=== PATIENT | male | born 1950 | race Caucasian/White ===

== ENCOUNTER 2025-03-19 16:16 | Inpatient (IN) | payer OTHER, MEDICARE ==
[~2025-03-19] VITALS: Ht 172.7 cm; Wt 68.0 kg
[2025-03-19 16:19] VITALS: O2SAT 99
[2025-03-19 18:52] LABS: HEMATOCRIT. 33.1 % (42.0-52.0); HEMOGLOBIN. 11.6 g/dL (14.0-18.0); MEAN PLATELET VOLUME 9.4 fl (7.4-10.4); PLATELET 246 x1000/uL (130-400); RED BLOOD CELL COUNT 3.52 mill/uL (4.7-6.1); RED CELL DISTRIBUTION WIDTH 13.3 % (11.6-14.6)
[2025-03-19 19:18] LABS: CREATININE 0.5 mg/dL (0.6-1.3); UREA NITROGEN BLOOD 12 mg/dL (9-23)
[2025-03-19 19:20] LABS: ASPARTATE AMINOTRANSFERASE 22 IU/L (<34); BILIRUBIN DIRECT 0.7 mg/dL (<=3.0); BILIRUBIN TOTAL 1.9 mg/dL (0.1-1.0)
[2025-03-19 19:21] LABS: PROTEIN TOTAL 6.6 g/dL (6.0-8.3)
[2025-03-19 19:34] LABS: LYMPHOCYTES % MANUAL 8.0 % (20.0-50.0); MONOCYTES % MANUAL 6.0 % (2.0-8.0); NEUTROPHILS % MANUAL 86.0 % (45.0-75.0); PLATELET ESTIMATE NORMAL
[2025-03-19] MEDS: SODIUM CHLORIDE 0.9% 500 ML IV ONE (19:54)
[2025-03-19] MEDS: KCL 10MEQ/50ML PREMIX 50 ML IV ONE (19:54)
[2025-03-19 20:00] VITALS: BP 166/79; PULSE 70; RESP 20; TEMP 36.9; O2SAT 98
[2025-03-19] MEDS: MELATONIN 3MG TABLET PO SCH (20:24)
[2025-03-19 21:00] VITALS: BP 158/72; PULSE 78; RESP 18; TEMP 37.3076
[2025-03-19] MEDS ORDERED: MAGNESIUM/ALUMINUM HYDROXIDE/SIMETHICONE 30ML UDC PO PRN (21:45)
[2025-03-19] MEDS ORDERED: ONDANSETRON HCL 4MG/2ML INJ IV PRN (21:45)
[2025-03-19] MEDS ORDERED: NICARDIPINE 40MG/200ML PREMIX 200 ML IV PRN (21:45)
[2025-03-19] MEDS: SODIUM CHLORIDE 0.9% 1,000 ML IV SCH (23:50)
[2025-03-20] VITALS: BP 152/75; PULSE 72; RESP 18; TEMP 37.7; O2SAT 99
[2025-03-20 02:37] LABS: TROPONIN I HIGH SENSITIVITY 12 ng/L (3.0-53)
[2025-03-20 04:00] VITALS: BP 156/72; PULSE 71; RESP 18; TEMP 37.4; O2SAT 98
[2025-03-20 06:37] LABS: BASOPHILS % 0.4 % (0.0-2.0); EOSINOPHILS % 1.6 % (0.0-5.0); HEMATOCRIT. 34.1 % (42.0-52.0); HEMOGLOBIN. 11.9 g/dL (14.0-18.0); LYMPHOCYTES % 7.5 % (20.0-50.0); MEAN PLATELET VOLUME 9.7 fl (7.4-10.4); MONOCYTES % 13.5 % (2.0-8.0); NEUTROPHILS % 77.0 % (40.0-76.0); PLATELET 226 x1000/uL (130-400); RED BLOOD CELL COUNT 3.58 mill/uL (4.7-6.1); RED CELL DISTRIBUTION WIDTH 13.2 % (11.6-14.6)
[2025-03-20 06:52] LABS: TROPONIN I HIGH SENSITIVITY 11 ng/L (3.0-53)
[2025-03-20 06:55] LABS: CREATININE 0.6 mg/dL (0.6-1.3); UREA NITROGEN BLOOD 11 mg/dL (9-23)
[2025-03-20 08:00] VITALS: BP 156/83; PULSE 68; RESP 16; TEMP 36.7; O2SAT 97
[2025-03-20] MEDS: PANTOPRAZOLE SODIUM 40 MG/VIAL IV SCH (10:35)
[2025-03-20] MEDS: LOSARTAN 25 MG TABLET PO SCH (10:36)
[2025-03-20] MEDS: AMLODIPINE 5MG TABLET PO SCH (10:37)
[2025-03-20] MEDS: LEVETIRACETAM 500MG PREMIX 100 ML IV SCH (10:48)
[2025-03-20 12:00] VITALS: BP 156/83; PULSE 68; RESP 16; TEMP 36.7; O2SAT 97
[2025-03-20 16:00] VITALS: BP 159/80; PULSE 68; RESP 16; TEMP 36.9; O2SAT 98
[2025-03-20] MEDS: HYDROCODONE/ACETAMINOPHEN 5/325MG TABLET PO PRN (18:31)
[2025-03-20 20:00] VITALS: BP_SYST 163; BP_DIAS 81; BP_DIAS 82; PULSE 73; RESP 18; TEMP 36.1; O2SAT 98
[2025-03-20] MEDS: ZOLPIDEM TARTRATE 5MG TABLET PO PRN (21:59)
[2025-03-20] MEDS: ACETAMINOPHEN 325MG TABLET PO PRN (22:02)
[2025-03-21] VITALS: BP 153/78; PULSE 69; RESP 18; TEMP 35.7; O2SAT 99
[2025-03-21 04:00] VITALS: BP_SYST 147; BP_SYST 154; BP_DIAS 70; BP_DIAS 83; PULSE 71; PULSE 83; RESP 17; TEMP 36; TEMP 36.1; O2SAT 100; O2SAT 99
[2025-03-21 08:00] VITALS: BP 158/76; PULSE 77; RESP 16; TEMP 36.7; O2SAT 99
[2025-03-21 08:04] LABS: HEMATOCRIT. 36.2 % (42.0-52.0); HEMOGLOBIN. 12.0 g/dL (14.0-18.0); MEAN PLATELET VOLUME 9.0 fl (7.4-10.4); PLATELET 239 x1000/uL (130-400); RED BLOOD CELL COUNT 3.63 mill/uL (4.7-6.1); RED CELL DISTRIBUTION WIDTH 13.2 % (11.6-14.6)
[2025-03-21 08:24] LABS: CREATININE 0.5 mg/dL (0.6-1.3); UREA NITROGEN BLOOD 6 mg/dL (9-23)
[2025-03-21] MEDS ORDERED: NALOXONE HCL 0.4MG/ML VIAL IV PRN (11:00)
[2025-03-21 12:00] VITALS: BP 134/67; PULSE 85; RESP 18; TEMP 36.4; O2SAT 99
[2025-03-21 16:00] VITALS: BP 141/75; PULSE 76; RESP 16; TEMP 36.6; O2SAT 99
[2025-03-21 17:50] LABS: BAND% 1.0 % (1.0-6.0); EOSINOPHILS % MANUAL 4.0 % (0.0-5.0); LYMPHOCYTES % MANUAL 4.0 % (20.0-50.0); MONOCYTES % MANUAL 12.0 % (2.0-8.0); NEUTROPHILS % MANUAL 79.0 % (45.0-75.0); PLATELET ESTIMATE NORMAL
[2025-03-21] MEDS ORDERED: CLONIDINE 0.1MG TABLET PO PRN (19:30)
[2025-03-22] VITALS: BP 144/67; PULSE 70; RESP 16; TEMP 36.9; O2SAT 99
[2025-03-22 04:00] VITALS: BP 141/78; PULSE 64; RESP 17; TEMP 36.8; O2SAT 98
[2025-03-22 08:00] VITALS: BP 146/73; PULSE 64; RESP 18; TEMP 36.6; O2SAT 99
[2025-03-22 09:43] LABS: CLARITY URINE CLEAR (CLEAR); COLOR URINE DARK YELLOW (YELLOW); PROTEIN URINE NEGATIVE (NEGATIVE); SPECIFIC GRAVITY URINE 1.012 (1.005-1.030)
[2025-03-22 09:44] LABS: GLUCOSE URINE NEGATIVE (NEGATIVE); KETONES URINE NEGATIVE (NEGATIVE); LEUKOCYTE ESTERASE URINE NEGATIVE (NEGATIVE); NITRITE URINE NEGATIVE (NEGATIVE); OCCULT BLOOD URINE NEGATIVE (NEGATIVE); PH URINE 6.0 (4.5-8.0); UROBILINOGEN URINE 4.0 E.U./dL (0.2-1.0)
[2025-03-22] MEDS: TAMSULOSIN HCL 0.4MG SR CAPSULE PO SCH (09:46)
[2025-03-22] MEDS: LOSARTAN 50 MG TABLET PO SCH (09:47)
[2025-03-22 10:19] LABS: RBC URINE 0-2 /hpf (0-2); WBC URINE 0-2 /hpf (0-2)
[2025-03-22 10:20] LABS: MUCUS URINE TRACE /lpf (NONE/TRACE); SODIUM URINE RANDOM 70 mEq/L
[2025-03-22 10:28] LABS: BACTERIA URINE NONE SEEN; SQUAMOUS EPITHELIAL CELL URINE NONE SEEN /lpf (RARE/1+)
[2025-03-22 12:00] VITALS: BP 137/73; PULSE 75; RESP 18; TEMP 36.5; O2SAT 98
[2025-03-22] MEDS: POTASSIUM CHLORIDE 20MEQ TABLET SR PO NR (12:50)
[2025-03-22] MEDS ORDERED: AMLO5TAB88 PO (13:18)
[2025-03-22] MEDS ORDERED: LOSA50TA41 PO (13:18)
[2025-03-22] MEDS ORDERED: TAMS-54 PO (13:18)
[2025-03-22 14:44] LABS: OSMOLALITY URINE 376 mOsm/kg (500-850)
[2025-03-22 16:00] VITALS: BP 145/74; PULSE 77; RESP 18; TEMP 36.3; O2SAT 99
[2025-03-22 20:26] VITALS: TEMP 97.4
[2025-03-22] MEDS ORDERED: LACTULOSE 20G/30ML UDC PO SCH (21:00)
== END 2025-03-22 20:36 | DRG 83 ==
LOC: ER 16:16 → EDBEDREQ 19:41 → EDBEDREQTM 19:41 → ENRESERV 19:57 → 5WST 22:20
PROVIDERS: ADMIT Internal Medicine; ATTEND Internal Medicine
DX: S06.5XAA Traumatic subdural hemorrhage with loss of consciousness status unknown, initial encounter (principal); E87.1 Hypo-osmolality and hyponatremia; I16.0 Hypertensive urgency; S06.6XAA Traumatic subarachnoid hemorrhage with loss of consciousness status unknown, initial encounter; I10 Essential (primary) hypertension; D64.9 Anemia, unspecified; V03.10XA Pedestrian on foot injured in collision with car, pick-up truck or van in traffic accident, initial encounter; Y93.89 Activity, other specified; Y92.89 Other specified places as the place of occurrence of the external cause; Y99.8 Other external cause status
CPT/HCPCS: 36415; 71045; 80048; 80076; 81003; 83735; 83930; 83935; 84300; 84443; 84484; 85025; 93005; 93970; 96365; 97162; 99285; A4606; J1953; J2470; J3480; J7040

== ENCOUNTER 2025-03-26 08:00 | Inpatient (IN) | payer OTHER, MEDICARE ==
[~2025-03-26] VITALS: Ht 172.7 cm; Wt 71.7 kg
[2025-03-26] VITALS (61 sets, daily range): BP systolic 62–172; BP diastolic 51–95; PULSE 75–113; RESP 16–34; TEMP 36.6–36.8; O2SAT 0–100
[~2025-03-26 08:00] MED LIST: AMLO5TAB88 PO; LOSA50TA41 PO; TAMS-54 PO
[2025-03-26] MEDS ORDERED: NOREPINEPHRINE 8MG/250ML PMX 250 ML IV PRN (08:30)
[2025-03-26] MEDS ORDERED: FENTANYL 2500MCG/250ML PMX 250 ML IV PRN (09:00)
[2025-03-26] MEDS: PROPOFOL 10MG/ML 100ML 100 ML IV PRN (09:44)
[2025-03-26] MEDS: LEVETIRACETAM 1000MG PREMIX 100 ML IV SCH ×2 (09:44→21:53)
[2025-03-26] MEDS ORDERED: BACITRACIN 14GM TUBE TOP ONE (10:14)
[2025-03-26] MEDS ORDERED: THROMBIN (BOVINE) 5000 UNITS/VIAL TOP ONE ×2 (10:14→12:56)
[2025-03-26] MEDS ORDERED: GENTAMICIN SULF 40MG/ML 2ML VIAL ONE (10:15)
[2025-03-26] MEDS ORDERED: LIDOCAINE HCL/EPINEPHRINE 1%-EPI 1:100,000 20ML VIAL ONE (10:15)
[2025-03-26] MEDS ORDERED: FENTANYL CITRATE/PF 50MCG/ML 5ML VIAL ONE (10:32)
[2025-03-26] MEDS ORDERED: PROPOFOL 200MG/20ML VIAL IV ONE (11:16)
[2025-03-26 11:26] LABS: BG BASE EXCESS -4.6 mmol/L (-2.0-3.0); BG CARBOXYHEMOGLOBIN 0.9 % (0.5-1.5); BG DEOXYHEMOGLOBIN 3.7 % (0.0-5.0); BG FRACTION INSPIRED OXYGEN 100; BG HCO3 ACT 20.4 mmol/L (21.0-28.0); BG METHEMOGLOBIN 0.3 % (0.5-1.5); BG OXYGEN SATURATION 96.3 % (94.0-98.0); BG OXYHEMOGLOBIN 95.1 % (94.0-98.0); BG PCO2 37.7 mmHg (35.0-48.0); BG PH 7.352 (7.350-7.450); BG PO2 83.2 mmHg (83.0-108.0); BG SAMPLE SITE ALINE; BG TOTAL HEMOGLOBIN 13.2 g/dL (13.5-17.5)
[2025-03-26] MEDS ORDERED: NALOXONE HCL 0.4MG/ML VIAL IV PRN (12:00)
[2025-03-26 12:37] LABS: INR 1.2
[2025-03-26 12:46] LABS: CREATININE 1.2 mg/dL (0.6-1.3); UREA NITROGEN BLOOD 20 mg/dL (9-23)
[2025-03-26 12:48] LABS: PHOSPHORUS 5.4 mg/dL (2.5-4.9)
[2025-03-26 13:03] LABS: HEMATOCRIT. 34.9 % (42.0-52.0); HEMOGLOBIN. 12.1 g/dL (14.0-18.0); MEAN PLATELET VOLUME 9.2 fl (7.4-10.4); PLATELET 365 x1000/uL (130-400); RED BLOOD CELL COUNT 3.73 mill/uL (4.7-6.1); RED CELL DISTRIBUTION WIDTH 13.2 % (11.6-14.6)
[2025-03-26] MEDS: DEXT 5%/LACTATED RINGERS 1,000 ML IV SCH (13:05)
[2025-03-26] MEDS: NOREPINEPHRINE 8MG/250ML PMX 250ML IV PRN (13:37)
[2025-03-26] MEDS: CEFAZOLIN 1000MG PREMIX 50ML IV SCH (13:37)
[2025-03-26] MEDS ORDERED: CEFAZOLIN SODIUM 1000MG/VIAL IV SCH (14:00)
[2025-03-26 14:51] LABS: BAND% 17.0 % (1.0-6.0); EOSINOPHILS % MANUAL 1.0 % (0.0-5.0); LYMPHOCYTES % MANUAL 3.0 % (20.0-50.0); MONOCYTES % MANUAL 6.0 % (2.0-8.0); NEUTROPHILS % MANUAL 73.0 % (45.0-75.0)
[2025-03-26 14:54] LABS: PLATELET ESTIMATE NORMAL
[2025-03-26] MEDS: PANTOPRAZOLE SODIUM 40 MG/VIAL IV SCH (15:27)
[2025-03-26] MEDS: LACTATED RINGERS 1,000 ML IV SCH (15:56)
[2025-03-26] MEDS: KCL 20MEQ/100ML PREMIX 100 ML IV SCH (16:01)
[2025-03-26] MEDS: MAGNESIUM 4 G PREMIX 100 ML IV SCH (17:39)
[2025-03-26] MEDS: AZITHROMYCIN 500MG/250ML 250 ML IV SCH (19:41)
[2025-03-27] VITALS (99 sets, daily range): BP systolic 89–157; BP diastolic 57–84; PULSE 72–88; RESP 14–48; TEMP 36.6–37.2; O2SAT 94–100
[2025-03-27] MEDS: VASOPRESSIN 20 UNIT in SODIUM CHLORIDE 0.9% 99 ML IV PRN (00:02)
[2025-03-27 07:35] LABS: HEMATOCRIT. 28.9 % (42.0-52.0); HEMOGLOBIN. 10.0 g/dL (14.0-18.0); MEAN PLATELET VOLUME 9.9 fl (7.4-10.4); PLATELET 318 x1000/uL (130-400); RED BLOOD CELL COUNT 3.07 mill/uL (4.7-6.1); RED CELL DISTRIBUTION WIDTH 13.1 % (11.6-14.6)
[2025-03-27 07:43] LABS: CREATININE 1.0 mg/dL (0.6-1.3); TRIGLYCERIDE 92 mg/dL (0-150); UREA NITROGEN BLOOD 23 mg/dL (9-23)
[2025-03-27] MEDS ORDERED: DEXTROSE 50% WATER 50ML SYRINGE IV PRN (08:30)
[2025-03-27 08:54] LABS: BG BASE EXCESS -1.9 mmol/L (-2.0-3.0); BG CARBOXYHEMOGLOBIN 0.0 % (0.5-1.5); BG DEOXYHEMOGLOBIN 0.6 % (0.0-5.0); BG FRACTION INSPIRED OXYGEN 50; BG HCO3 ACT 19.6 mmol/L (21.0-28.0); BG METHEMOGLOBIN 0.3 % (0.5-1.5); BG OXYGEN SATURATION 99.4 % (94.0-98.0); BG OXYHEMOGLOBIN 99.1 % (94.0-98.0); BG PCO2 24.1 mmHg (35.0-48.0); BG PEEP (cmH2O) 5.0 cmH2O; BG PH 7.529 (7.350-7.450); BG PO2 142.5 mmHg (83.0-108.0); BG SAMPLE SITE ALINE; BG TIDAL VOLUME(mL) 450.0 mL; BG TOTAL HEMOGLOBIN 10.4 g/dL (13.5-17.5); BG VENT MODE VENT - AC; BG VENT RATE 16.0 set
[2025-03-27] MEDS ORDERED: PANTOPRAZOLE SODIUM 40 MG/VIAL IV SCH (09:00)
[2025-03-27] MEDS ORDERED: LIDOCAINE HCL 1% 10 MG/ML 10ML VIAL ONE (09:36)
[2025-03-27 11:09] LABS: ASPARTATE AMINOTRANSFERASE 23 IU/L (<34); BILIRUBIN DIRECT 1.5 mg/dL (<=3.0); BILIRUBIN TOTAL 2.5 mg/dL (0.1-1.0); PHOSPHORUS 2.6 mg/dL (2.5-4.9); PROTEIN TOTAL 6.0 g/dL (6.0-8.3)
[2025-03-27] MEDS: SODIUM CHLORIDE 3% 500 ML IV NR (11:23)
[2025-03-27 11:39] LABS: TRIGLYCERIDE 93.0 mg/dL (0-150)
[2025-03-27 11:40] LABS: LDL CHOLESTEROL 60.0 mg/dL (5-100)
[2025-03-27 11:44] LABS: T4 FREE 1.55 ng/dL (0.89-1.76)
[2025-03-27] MEDS: CEFTRIAXONE 1GM/50ML 50ML IV SCH (15:08)
[2025-03-27 15:10] LABS: LYMPHOCYTES % MANUAL 2.0 % (20.0-50.0); MONOCYTES % MANUAL 5.0 % (2.0-8.0); NEUTROPHILS % MANUAL 93.0 % (45.0-75.0); PLATELET ESTIMATE NORMAL
[2025-03-27 16:24] LABS: CLARITY URINE CLOUDY (CLEAR); COLOR URINE DARK YELLOW (YELLOW); GLUCOSE URINE NEGATIVE (NEGATIVE); KETONES URINE NEGATIVE (NEGATIVE); LEUKOCYTE ESTERASE URINE 1+ (NEGATIVE); NITRITE URINE POSITIVE (NEGATIVE); OCCULT BLOOD URINE 3+ (NEGATIVE); PH URINE 5.0 (4.5-8.0); PROTEIN URINE 1+ (NEGATIVE); SPECIFIC GRAVITY URINE 1.023 (1.005-1.030); UROBILINOGEN URINE 2.0 E.U./dL (0.2-1.0)
[2025-03-27 17:05] LABS: RBC URINE 25-50 /hpf (0-2); SQUAMOUS EPITHELIAL CELL URINE FEW /lpf (RARE/1+)
[2025-03-27 17:07] LABS: BACTERIA URINE 3+
[2025-03-27] MEDS: IPRATROPIUM/ALBUTEROL 0.5-3(2.5)MG/3ML NEB HHN SCH (19:54)
[2025-03-28] VITALS (106 sets, daily range): BP systolic 124–172; BP diastolic 52–81; PULSE 70–103; RESP 11–32; TEMP 36.6–37.3; O2SAT 83–100
[2025-03-28] MEDS: BLOOD SUGAR DIAGNOSTIC STRIP TEST SCH
[2025-03-28 06:05] LABS: CREATININE 0.6 mg/dL (0.6-1.3); UREA NITROGEN BLOOD 17 mg/dL (9-23)
[2025-03-28] MEDS ORDERED: KCL 20MEQ/100ML PREMIX 100 ML IV NR (07:30)
[2025-03-28] MEDS: KCL 20MEQ/100ML PREMIX 100 ML IV NR (09:44)
[2025-03-28] MEDS: FAMOTIDINE 20MG/2ML VIAL IV SCH (09:44)
[2025-03-28 10:20] LABS: BG BASE EXCESS -0.9 mmol/L (-2.0-3.0); BG CARBOXYHEMOGLOBIN 0.9 % (0.5-1.5); BG DEOXYHEMOGLOBIN 1.2 % (0.0-5.0); BG FRACTION INSPIRED OXYGEN 40; BG HCO3 ACT 21.5 mmol/L (21.0-28.0); BG METHEMOGLOBIN 0.3 % (0.5-1.5); BG OXYGEN SATURATION 98.8 % (94.0-98.0); BG OXYHEMOGLOBIN 97.6 % (94.0-98.0); BG PCO2 27.8 mmHg (35.0-48.0); BG PEEP (cmH2O) 5.0 cmH2O; BG PH 7.507 (7.350-7.450); BG PIP 10.0 cmH2O; BG PO2 107.4 mmHg (83.0-108.0); BG SAMPLE SITE ALINE; BG TOTAL HEMOGLOBIN 9.1 g/dL (13.5-17.5); BG VENT RATE 8.0 set
[2025-03-28 11:50] LABS: PLATELET 320 x1000/uL (130-400); RED BLOOD CELL COUNT 2.71 mill/uL (4.7-6.1); RED CELL DISTRIBUTION WIDTH 13.5 % (11.6-14.6)
[2025-03-28] MEDS: NICARDIPINE 100 MG in SODIUM CHLORIDE 0.9% 60 ML IV PRN (14:23)
[2025-03-28] MEDS: AMLODIPINE 5MG TABLET NG SCH (17:19)
[2025-03-29] VITALS (100 sets, daily range): BP systolic 99–149; BP diastolic 49–107; PULSE 67–86; RESP 13–26; TEMP 36.7–36.9; O2SAT 80–100
[2025-03-29 08:40] LABS: BG BASE EXCESS 0.8 mmol/L (-2.0-3.0); BG CARBOXYHEMOGLOBIN 0.3 % (0.5-1.5); BG DEOXYHEMOGLOBIN 1.7 % (0.0-5.0); BG FRACTION INSPIRED OXYGEN 40; BG HCO3 ACT 23.5 mmol/L (21.0-28.0); BG METHEMOGLOBIN 0.3 % (0.5-1.5); BG OXYGEN SATURATION 98.3 % (94.0-98.0); BG OXYHEMOGLOBIN 97.7 % (94.0-98.0); BG PCO2 30.5 mmHg (35.0-48.0); BG PEEP (cmH2O) 5.0 cmH2O; BG PH 7.505 (7.350-7.450); BG PO2 102.8 mmHg (83.0-108.0); BG SAMPLE SITE ALINE; BG TIDAL VOLUME(mL) 350.0 mL; BG TOTAL HEMOGLOBIN 9.3 g/dL (13.5-17.5); BG TOTAL RESPIRATORY RATE 19 b/min; BG VENT MODE VENT - SIMV; BG VENT RATE 8.0 set
[2025-03-29] MEDS: MORPHINE SULFATE 4 MG/ML INJ (FOR IV/IM USE) IV PRN (16:12)
[2025-03-29 18:35] LABS: PLATELET 275 x1000/uL (130-400); RED BLOOD CELL COUNT 2.63 mill/uL (4.7-6.1); RED CELL DISTRIBUTION WIDTH 13.2 % (11.6-14.6)
[2025-03-29 18:55] LABS: CREATININE 0.5 mg/dL (0.6-1.3); UREA NITROGEN BLOOD 10 mg/dL (9-23)
[2025-03-29 18:57] LABS: ASPARTATE AMINOTRANSFERASE 18 IU/L (<34); BILIRUBIN TOTAL 1.1 mg/dL (0.1-1.0); PROTEIN TOTAL 5.9 g/dL (6.0-8.3)
[2025-03-29] MEDS: BLOOD SUGAR DIAGNOSTIC STRIP TEST SCH (21:44)
[2025-03-30] VITALS (101 sets, daily range): BP systolic 101–156; BP diastolic 52–129; PULSE 70–98; RESP 13–26; TEMP 36.7; O2SAT 97–100
[2025-03-30] MEDS: HYDRALAZINE 20MG/ML VIAL IV PRN
[2025-03-30 06:39] LABS: PLATELET 296 x1000/uL (130-400); RED BLOOD CELL COUNT 2.71 mill/uL (4.7-6.1); RED CELL DISTRIBUTION WIDTH 13.4 % (11.6-14.6)
[2025-03-30 07:12] LABS: CREATININE 0.4 mg/dL (0.6-1.3); UREA NITROGEN BLOOD 10 mg/dL (9-23)
[2025-03-30] MEDS: KCL 20MEQ/100ML PREMIX 100 ML IV SCH (10:02)
[2025-03-30] MEDS: MULTIVITAMINS,THER W-MINERALS TABLET PO SCH (10:03)
[2025-03-30 10:23] LABS: BG BASE EXCESS 5.3 mmol/L (-2.0-3.0); BG CARBOXYHEMOGLOBIN 0.9 % (0.5-1.5); BG DEOXYHEMOGLOBIN 0.6 % (0.0-5.0); BG FRACTION INSPIRED OXYGEN 40; BG HCO3 ACT 28.6 mmol/L (21.0-28.0); BG METHEMOGLOBIN 0.3 % (0.5-1.5); BG OXYGEN SATURATION 99.4 % (94.0-98.0); BG OXYHEMOGLOBIN 98.2 % (94.0-98.0); BG PCO2 36.7 mmHg (35.0-48.0); BG PEEP (cmH2O) 5.0 cmH2O; BG PH 7.510 (7.350-7.450); BG PO2 152.2 mmHg (83.0-108.0); BG SAMPLE SITE ALINE; BG TIDAL VOLUME(mL) 350.0 mL; BG TOTAL HEMOGLOBIN 9.2 g/dL (13.5-17.5); BG VENT MODE VENT - SIMV; BG VENT RATE 8.0 set
[2025-03-30 16:56] LABS: BG BASE EXCESS 3.8 mmol/L (-2.0-3.0); BG CARBOXYHEMOGLOBIN 0.3 % (0.5-1.5); BG DEOXYHEMOGLOBIN 1.0 % (0.0-5.0); BG FRACTION INSPIRED OXYGEN 40; BG HCO3 ACT 26.7 mmol/L (21.0-28.0); BG METHEMOGLOBIN 0.3 % (0.5-1.5); BG OXYGEN SATURATION 99.0 % (94.0-98.0); BG OXYHEMOGLOBIN 98.4 % (94.0-98.0); BG PCO2 34.1 mmHg (35.0-48.0); BG PEEP (cmH2O) 5.0 cmH2O; BG PH 7.512 (7.350-7.450); BG PO2 135.9 mmHg (83.0-108.0); BG SAMPLE SITE ALINE; BG TOTAL HEMOGLOBIN 10.4 g/dL (13.5-17.5); BG VENT MODE VENT - CPAP
[2025-03-30] MEDS ORDERED: NICARDIPINE 100 MG in SODIUM CHLORIDE 0.9% 60 ML IV PRN (20:00)
[2025-03-31] VITALS (75 sets, daily range): BP systolic 109–172; BP diastolic 55–95; PULSE 85–117; RESP 13–29; TEMP 36.7–37.2; O2SAT 91–100
[2025-03-31 05:32] LABS: PLATELET 305 x1000/uL (130-400); RED BLOOD CELL COUNT 3.04 mill/uL (4.7-6.1); RED CELL DISTRIBUTION WIDTH 13.6 % (11.6-14.6)
[2025-03-31 06:07] LABS: CREATININE 0.4 mg/dL (0.6-1.3)
[2025-03-31 06:08] LABS: UREA NITROGEN BLOOD 8 mg/dL (9-23)
[2025-03-31] MEDS ORDERED: KCL 20MEQ/100ML PREMIX 100 ML IV SCH (08:30)
[2025-03-31] MEDS: KCL 20MEQ/100ML PREMIX 100 ML IV SCH (11:21)
[2025-03-31] MEDS ORDERED: MORPHINE SULFATE 4 MG/ML INJ (FOR IV/IM USE) IV PRN (17:30)
[2025-03-31] MEDS ORDERED: NALOXONE HCL 0.4MG/ML VIAL IV PRN (17:45)
[2025-04-01] VITALS (10 sets, daily range): BP systolic 106–152; BP diastolic 68–85; PULSE 89–112; RESP 16–20; TEMP 36.1–37.1; O2SAT 95–99
[2025-04-01 07:12] LABS: HEMATOCRIT. 30.1 % (42.0-52.0); HEMOGLOBIN. 10.2 g/dL (14.0-18.0); MEAN PLATELET VOLUME 9.8 fl (7.4-10.4); PLATELET 340 x1000/uL (130-400); RED BLOOD CELL COUNT 3.20 mill/uL (4.7-6.1); RED CELL DISTRIBUTION WIDTH 13.3 % (11.6-14.6)
[2025-04-01 07:24] LABS: CREATININE 0.5 mg/dL (0.6-1.3)
[2025-04-01 07:25] LABS: UREA NITROGEN BLOOD 10 mg/dL (9-23)
[2025-04-01 07:27] LABS: PHOSPHORUS 4.3 mg/dL (2.5-4.9)
[2025-04-01 17:00] LABS: EOSINOPHILS % MANUAL 6.0 % (0.0-5.0); LYMPHOCYTES % MANUAL 6.0 % (20.0-50.0); MONOCYTES % MANUAL 14.0 % (2.0-8.0); NEUTROPHILS % MANUAL 74.0 % (45.0-75.0); PLATELET ESTIMATE NORMAL
[2025-04-01] MEDS: HYDRALAZINE HCL 50MG TABLET PO SCH (21:46)
[2025-04-02] VITALS: BP 150/81; PULSE 100; RESP 21; TEMP 36.3; O2SAT 98
[2025-04-02 04:00] VITALS: BP 145/85; PULSE 99; RESP 21; TEMP 37.4; O2SAT 98
[2025-04-02 08:00] VITALS: BP 146/80; PULSE 94; RESP 18; TEMP 37.3; O2SAT 96
[2025-04-02] MEDS: AMLODIPINE 5MG TABLET NG SCH (08:56)
[2025-04-02 12:00] VITALS: BP 116/68; PULSE 94; RESP 20; TEMP 36.4; O2SAT 95
[2025-04-02 16:00] VITALS: BP 110/59; PULSE 99; RESP 20; TEMP 37.2; O2SAT 96
[2025-04-02 20:00] VITALS: BP 112/72; PULSE 66; RESP 18; TEMP 36.2; O2SAT 97
[2025-04-02] MEDS: HYDRALAZINE HCL 100MG TABLET PO SCH (21:46)
[2025-04-03] VITALS: BP 131/77; PULSE 96; RESP 18; TEMP 36.8; O2SAT 97
[2025-04-03 08:00] VITALS: BP 109/60; PULSE 93; RESP 20; TEMP 37.4; O2SAT 96
[2025-04-03 12:00] VITALS: BP 144/72; PULSE 90; RESP 20; TEMP 36.8; O2SAT 97
[2025-04-03 16:00] VITALS: BP 110/61; PULSE 94; RESP 18; TEMP 37.4; O2SAT 96
[2025-04-03 16:17] LABS: HEMATOCRIT. 33.3 % (42.0-52.0); HEMOGLOBIN. 10.9 g/dL (14.0-18.0); MEAN PLATELET VOLUME 9.9 fl (7.4-10.4); PLATELET 352 x1000/uL (130-400); RED BLOOD CELL COUNT 3.46 mill/uL (4.7-6.1); RED CELL DISTRIBUTION WIDTH 13.8 % (11.6-14.6)
[2025-04-03 16:32] LABS: CREATININE 0.5 mg/dL (0.6-1.3); UREA NITROGEN BLOOD 14 mg/dL (9-23)
[2025-04-03 16:46] LABS: EOSINOPHILS % MANUAL 2.0 % (0.0-5.0); LYMPHOCYTES % MANUAL 10.0 % (20.0-50.0); MONOCYTES % MANUAL 16.0 % (2.0-8.0); NEUTROPHILS % MANUAL 72.0 % (45.0-75.0); PLATELET ESTIMATE NORMAL
[2025-04-03 20:00] VITALS: BP 142/79; PULSE 91; RESP 19; TEMP 36.1; O2SAT 98
[2025-04-04] VITALS: BP 153/87; PULSE 105; RESP 19; TEMP 36.6; O2SAT 98
[2025-04-04 04:00] VITALS: BP 150/83; PULSE 98; RESP 19; TEMP 36.7; O2SAT 95
[2025-04-04 08:00] VITALS: BP 132/65; PULSE 79; RESP 20; TEMP 36.6; O2SAT 99
[2025-04-04] MEDS: CARVEDILOL 6.25 MG TABLET PO SCH (09:37)
[2025-04-04 12:00] VITALS: BP 120/70; PULSE 89; RESP 20; TEMP 36.4; O2SAT 97
[2025-04-04 12:32] LABS: HEMATOCRIT. 32.0 % (42.0-52.0); HEMOGLOBIN. 10.8 g/dL (14.0-18.0); MEAN PLATELET VOLUME 9.7 fl (7.4-10.4); PLATELET 309 x1000/uL (130-400); RED BLOOD CELL COUNT 3.33 mill/uL (4.7-6.1); RED CELL DISTRIBUTION WIDTH 13.7 % (11.6-14.6)
[2025-04-04 12:41] LABS: CREATININE 0.5 mg/dL (0.6-1.3); UREA NITROGEN BLOOD 13 mg/dL (9-23)
[2025-04-04 17:16] LABS: EOSINOPHILS % MANUAL 5.0 % (0.0-5.0); LYMPHOCYTES % MANUAL 2.0 % (20.0-50.0); MONOCYTES % MANUAL 9.0 % (2.0-8.0); NEUTROPHILS % MANUAL 84.0 % (45.0-75.0); PLATELET ESTIMATE NORMAL
[2025-04-04 20:00] VITALS: BP 128/76; PULSE 83; RESP 18; TEMP 36.5; O2SAT 95
[2025-04-05] VITALS: BP 121/77; PULSE 75; RESP 18; TEMP 36.1; O2SAT 94
[2025-04-05 04:00] VITALS: BP 145/78; PULSE 67; RESP 20; TEMP 36.7; O2SAT 100
[2025-04-05 08:00] VITALS: BP 143/71; PULSE 71; RESP 19; TEMP 36.6; O2SAT 98
[2025-04-05] MEDS ORDERED: HYDRALAZINE 10 MG in SODIUM CHLORIDE 0.9% 49.5 ML IV PRN (08:45)
[2025-04-05 12:00] VITALS: BP 145/70; PULSE 73; RESP 19; TEMP 36.5; O2SAT 98
[2025-04-05] MEDS ORDERED: KEPP500 MT (12:00)
[2025-04-05] MEDS ORDERED: LIP40 MT (12:00)
[2025-04-05] MEDS ORDERED: COR6 PO (12:00)
[2025-04-05 13:13] LABS: HEMATOCRIT. 33.9 % (42.0-52.0); HEMOGLOBIN. 10.9 g/dL (14.0-18.0); MEAN PLATELET VOLUME 9.9 fl (7.4-10.4); PLATELET 273 x1000/uL (130-400); RED BLOOD CELL COUNT 3.50 mill/uL (4.7-6.1); RED CELL DISTRIBUTION WIDTH 13.8 % (11.6-14.6)
[2025-04-05 13:27] LABS: CREATININE 0.5 mg/dL (0.6-1.3)
[2025-04-05 13:28] LABS: UREA NITROGEN BLOOD 18 mg/dL (9-23)
[2025-04-05 14:35] LABS: EOSINOPHILS % MANUAL 3.0 % (0.0-5.0); LYMPHOCYTES % MANUAL 1.0 % (20.0-50.0); MONOCYTES % MANUAL 6.0 % (2.0-8.0); NEUTROPHILS % MANUAL 90.0 % (45.0-75.0); PLATELET ESTIMATE NORMAL
[2025-04-05 16:00] VITALS: BP 151/77; PULSE 77; RESP 20; TEMP 36.9; O2SAT 98
[2025-04-05] MEDS: ATORVASTATIN CALCIUM 40MG TABLET PO SCH (20:34)
[2025-04-05 21:00] VITALS: BP 144/86; PULSE 97; RESP 18; TEMP 37.5; O2SAT 98
[2025-04-06] VITALS: BP 115/71; PULSE 75; RESP 16; TEMP 36.8; O2SAT 97
[2025-04-06 04:00] VITALS: BP 135/83; PULSE 78; RESP 16; TEMP 36.3; O2SAT 98
[2025-04-06 07:24] LABS: CREATININE 0.6 mg/dL (0.6-1.3); UREA NITROGEN BLOOD 10 mg/dL (9-23)
[2025-04-06 07:26] LABS: BASOPHILS % 1.0 % (0.0-2.0); EOSINOPHILS % 4.7 % (0.0-5.0); HEMATOCRIT. 33.3 % (42.0-52.0); HEMOGLOBIN. 10.9 g/dL (14.0-18.0); LYMPHOCYTES % 8.0 % (20.0-50.0); MEAN PLATELET VOLUME 10.3 fl (7.4-10.4); MONOCYTES % 8.5 % (2.0-8.0); NEUTROPHILS % 77.8 % (40.0-76.0); PLATELET 280 x1000/uL (130-400); RED BLOOD CELL COUNT 3.41 mill/uL (4.7-6.1); RED CELL DISTRIBUTION WIDTH 13.9 % (11.6-14.6)
[2025-04-06 08:00] VITALS: BP 144/77; RESP 17; TEMP 36.4; O2SAT 97
[2025-04-06 12:00] VITALS: BP 135/68; RESP 16; TEMP 36.6; O2SAT 98
[2025-04-06 16:00] VITALS: BP 132/75; RESP 17; TEMP 36.4; O2SAT 99
[2025-04-06 20:00] VITALS: BP 117/73; PULSE 72; RESP 19; TEMP 36.4; O2SAT 95
[2025-04-07] VITALS: BP 129/78; PULSE 76; RESP 18; TEMP 36.6; O2SAT 95
[2025-04-07 04:00] VITALS: BP 144/78; PULSE 65; RESP 19; TEMP 36.4
[2025-04-07] MEDS: LEVETIRACETAM 1,000 MG in SODIUM CHLORIDE 0.9% 100 ML IV SCH (10:19)
[2025-04-07 16:00] VITALS: BP 112/63; PULSE 76; RESP 17; TEMP 36.3; O2SAT 100
[2025-04-07 20:00] VITALS: BP 116/74; PULSE 75; RESP 18; TEMP 36.4; O2SAT 99
[2025-04-08] VITALS (7 sets, daily range): BP systolic 107–134; BP diastolic 59–70; PULSE 73–78; RESP 18–19; TEMP 36.5–36.7; O2SAT 97–99
[2025-04-08] MEDS: LEVETIRACETAM 1000MG PREMIX 100 ML IV SCH (12:04)
== END 2025-04-08 20:48 | DRG 853 ==
LOC: MICUSO 08:00 → 8WST 03-31 21:32 → 4WST 04-05 08:04
PROVIDERS: ADMIT Internal Medicine; ATTEND Internal Medicine
PROC: 00C40ZZ Extirpation of Matter from Intracranial Subdural Space, Open Approach (ICD-10-PCS; principal; 2025-03-26)
PROC: 0BH17EZ Insertion of Endotracheal Airway into Trachea, Via Natural or Artificial Opening (ICD-10-PCS; 2025-03-26)
PROC: 5A1955Z Respiratory Ventilation, Greater than 96 Consecutive Hours (ICD-10-PCS; 2025-03-26)
PROC: 02HV33Z Insertion of Infusion Device into Superior Vena Cava, Percutaneous Approach (ICD-10-PCS; 2025-03-27)
PROC: B548ZZA Ultrasonography of Superior Vena Cava, Guidance (ICD-10-PCS; 2025-03-27)
DX: A41.9 Sepsis, unspecified organism (principal); G93.5 Compression of brain; S06.5XAA Traumatic subdural hemorrhage with loss of consciousness status unknown, initial encounter; S06.6XAA Traumatic subarachnoid hemorrhage with loss of consciousness status unknown, initial encounter; J96.01 Acute respiratory failure with hypoxia; J69.0 Pneumonitis due to inhalation of food and vomit; G93.40 Encephalopathy, unspecified; R13.10 Dysphagia, unspecified; N39.0 Urinary tract infection, site not specified; R65.20 Severe sepsis without septic shock; G81.94 Hemiplegia, unspecified affecting left nondominant side; I16.0 Hypertensive urgency; D64.9 Anemia, unspecified; E87.20 Acidosis, unspecified; E87.1 Hypo-osmolality and hyponatremia; R47.01 Aphasia; I48.0 Paroxysmal atrial fibrillation; E87.6 Hypokalemia; E83.42 Hypomagnesemia; V89.2XXA Person injured in unspecified motor-vehicle accident, traffic, initial encounter; I10 Essential (primary) hypertension; S40.211A Abrasion of right shoulder, initial encounter; S50.311A Abrasion of right elbow, initial encounter; S70.10XA Contusion of unspecified thigh, initial encounter; R47.1 Dysarthria and anarthria; E16.2 Hypoglycemia, unspecified; H53.462 Homonymous bilateral field defects, left side; X58.XXXA Exposure to other specified factors, initial encounter; Z78.1 Physical restraint status; Z82.49 Family history of ischemic heart disease and other diseases of the circulatory system; Z86.73 Personal history of transient ischemic attack (TIA), and cerebral infarction without residual deficits; Z87.828 Personal history of other (healed) physical injury and trauma; Y93.89 Activity, other specified; Y92.89 Other specified places as the place of occurrence of the external cause; Y99.8 Other external cause status; Y92.488 Other paved roadways as the place of occurrence of the external cause
CPT/HCPCS: 31500; 31720; 36415; 36573; 36600; 70551; 71045; 76700; 80048; 80053; 80061; 80076; 81003; 82040; 82140; 82375; 82533; 82805; 82962; 83605; 83735; 83930; 84100; 84145; 84295; 84439; 84443; 84478; 84481; 85025; 85027; 86850; 86900; 87070; 88304; 92523; 92610; 93306; 94002; 94003; 94070; 94640; 94664; 97110; 97112; 97162; 97166; 97530; 97535; 98960; A4606; C1725; J0360; J0456; J0690; J0696; J1308; J1580; J1953; J2003; J2004; J2270; J2470; J2704; J3010; J3475; J3480; J3490; J7030; J7050; J7120; J7121; C1713